=== PATIENT | male | born 1985 | race Asian ===

== ENCOUNTER 2023-03-13 14:28 | Emergency (ER) | payer MEDICAID, SELFPAY ==
[2023-03-13 14:34] VITALS: BP 140/76; PULSE 114; RESP 18; TEMP 36.5; O2SAT 98; BMI 22.3
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
[2023-03-13] MEDS: Diphth,Pertus(ACell),Tet Adult 0.5 ML SYRINGE IM (14:49)
== END 2023-03-13 14:53 | disposition home or self-care (01) ==
PROVIDERS: Emergency Provider Student in an Organized Health Care Education/Training Program; PCP Internal Medicine
DX: S61.212A Laceration without foreign body of right middle finger without damage to nail, initial encounter (principal); S61.214A Laceration without foreign body of right ring finger without damage to nail, initial encounter; S60.511A Abrasion of right hand, initial encounter; X99.1XXA Assault by knife, initial encounter; Y93.9 Activity, unspecified; Y92.9 Unspecified place or not applicable; Y99.0 Civilian activity done for income or pay; Z23 Encounter for immunization
CPT/HCPCS: 90471; 90715; 99282; 99284